=== PATIENT | male | born 2000 | race Two or more races ===

== ENCOUNTER 2024-04-12 19:46 | Emergency (ER) | payer MEDICAID, SELFPAY ==
[2024-04-12 19:47] VITALS: BMI 25.0
[2024-04-12 19:53] VITALS: BP 149/80; PULSE 56; RESP 18; TEMP 36.7; O2SAT 98; BMI 24.2
[2024-04-12 20:38] VITALS: BP 138/77; PULSE 61; RESP 18; TEMP 36.7; O2SAT 99
--- NOTE | 2024-04-12 20:59 | XR_ITS ---
Examination: Abdomen sonogram, Limited Date and time of exam: April 12, 2024 at 0908 hrs. Indications: Epigastric pain beginning 3 hours ago Technique: Real-time quezada scale transabdominal sonographic images of the upper abdomen obtained. Findings: Gallbladder sludge Negative for gallstones Gallbladder wall 0.3 cm no edema Common bile duct 0.2 cm Pancreatic head 2.5 cm Liver 13.5 cm smooth contour no focal liver lesions Normal hepatopedal portal venous flow Patent IVC Impression: Gallbladder sludge, negative for cholelithiasis, negative for cholecystitis
--- NOTE | 2024-04-12 21:00 | PD.EDRME ---
Rapid Medical Screening Exam RME Arrival date/time: 04/12/24 19:46 23-year-old male reports with complaints of epigastric abdominal pain that began this evening Chief Complaint: Abdominal Pain Time Seen by Provider: 04/12/24 20:08 Vital signs: Vital Signs Temperature 98.0 F 04/12/24 19:53 Pulse Rate 56 L 04/12/24 19:53 Respiratory Rate 18 04/12/24 19:53 Blood Pressure 149/80 H 04/12/24 19:53 Pulse Oximetry (%) 98 04/12/24 19:53 Oxygen Delivery Method Room Air 04/12/24 19:53
[2024-04-12 21:36] LABS: Collection Type, Urine Clean Catch; Squamous Epithelial Cell,Urine 0 /hpf (0-5)
[2024-04-12 21:42] LABS: Bilirubin,Urine Negative (Negative); Blood,Urine Negative (Negative); Clarity,Urine Clear (Clear/Hazy); Color,Urine Lt-Yellow (Lt Yel-Yel); Culture Indicated,Urine Not Indicated; Glucose, Urine Negative (Negative); Ketones,Urine Negative (Negative); Leukocyte Esterase,Urine Negative (Negative); Nitrite,Urine Negative (Negative); PH,Urine 6.5 (5.0-7.0); Protein,Urine Trace (Neg - Trace); RBC,Urine < 1 /hpf (0-3); Urobilinogen,Urine Negative mg/dL (0.0-1.0); WBC,Urine < 1 /hpf (0-5)
[2024-04-12 21:58] LABS: Basophils % (Auto) 1 % (0-2.5); Eosinophils # (Auto) 0.2 Thou/mm3 (0.0-0.5); Eosinophils % (Auto) 2 % (0-10); Hematocrit 44.2 % (41.0-53.0); Hemoglobin 15.3 g/dL (13.5-16.0); Immature Granulocytes % (Auto) 0 % (0-0); Immature Granulocytes Auto 0.01 Thou/mm3 (0.00-0.00); Lymphocytes # (Auto) 2.4 Thou/mm3 (1.0-4.8); Lymphocytes % (Auto) 34 % (10-50); Mean Corpuscular HGB Conc 34.6 g/dl (31.0-37.0); Mean Corpuscular Hemoglobin 30.6 pg (25.0-35.0); Mean Corpuscular Volume 88 fL (80-100); Monocytes # (Auto) 0.4 Thou/mm3 (0.0-0.8); Monocytes % (Auto) 6 % (0-12); Neutrophils % (Auto) 57 % (37-80); Nucleated Red Blood Cell % 0 /100 WBC (0); Platelet Count 224 Thou/mm3 (140-440); RDW Standard Deviation 40.3 fL (35.1-43.9); White Blood Count 7.1 Thou/mm3 (3.8-10.6)
[2024-04-12 22:18] VITALS: BP 145/80; PULSE 81; RESP 18; TEMP 36.7
--- NOTE | 2024-04-12 22:31 | EDNOTE_ITS ---
ED Abdominal Pain RME/HPI General Chief Complaint: Abdominal Pain Stated complaint: ABD PAIN X 3 HOURS Time seen by provider: 04/12/24 20:08 Arrival date/time: 04/12/24 19:46 This is a 23-year-old male with complaints of abdominal pain that started this afternoon. Patient states that he ate a torta and a soda and started to have pain. Patient denies nausea, vomiting, diarrhea, fever. Patient denies any urinary symptoms. RME / HPI RME / HPI narrative: 04/12/24 19:46 23-year-old male reports with complaints of epigastric abdominal pain that began this evening Related Data Previous Rx's ?Medication ?Instructions ?Recorded famotidine 40 mg tablet 40 mg PO QDAY #20 tabs 11/02 ibuprofen 800 mg tablet 800 mg PO Q6H PRN pain #10 t abs 04/12/24 Allergies Allergy/AdvReac Type Severity Reaction Status Date / Time No Known Allergies Allergy Verified 04/18/24 11:46 Review of Systems Review of Systems Systems Reviewed: All systems reviewed, normal except as documented Past Medical History Past Medical History NEUROLOGIC: Positive Seizures CARDIAC: Negative Congestive Heart Failure RESPIRATORY: Negative Chronic Obstructive Pulmonary Disease (COPD) GENITOURINARY: Negative Renal Disease ENDOCRINE: Negative Diabetes Mellitus Type 1 or Diabetes Mellitus Type 2 OTHER HISTORY: Positive Blood Transfusions; Negative Blood Transfusion Reaction or Anesthesia Reactions Social History SMOKING STATUS: Never smoker SUBSTANCE USE: does not use Travel History EBOLA RISK: No ED Exam General General appearance: Present alert and in no apparent distress Head Head exam: Present atraumatic Eye Eye exam: Present normal appearance, PERRL and EOMI ENT ENT exam: Present normal exam, normal oropharynx and mucous membranes moist Neck Neck exam: Present normal inspection, full ROM and trachea midline Chest Chest inspection: Present normal inspection and symmetric chest wall rise Respiratory Respiratory exam: Present normal lung sounds bilaterally Cardiovascular Cardiovascular exam: Present regular rate, normal rhythm and normal heart sounds Abdominal Exam Abdominal exam: Present soft Extremities Exam Extremities exam: Present normal inspection and full ROM Back Exam Back exam: Present normal inspection and full ROM Neurological Exam Neurological exam: Present alert, oriented X3 and CN II-XII intact Psychiatric Psychiatric exam: Present normal affect and normal mood Skin Skin exam: Present warm, dry, intact and normal color Course Quality Measures none Orders Category Date Time Status US abdomen limited Stat Exams 04/12/24 20:59 Completed CBC Stat Lab 04/12/24 21:43 Completed CMP [Comprehensive Metabolic Panel] Stat Lab 04/12/24 21:43 Completed Lipase Stat Lab 04/12/24 21:43 Completed UA, C/S IF [Urinalysis, C/S if Indicated] Stat Lab 04/12/24 21:22 Completed HYDROcodone*/APAP 5/325 [[place] 5/325] Med 04/12/24 22:35 Discontinued 1 tab PO X1 ONE Ketorolac Inj [Toradol Inj] Med 04/12/24 22:35 Discontinued 60 mg IM X1 ONE Metoclopramide Inj [Reglan Inj] Med 04/12/24 22:35 Discontinued 10 mg IM X1 ONE Vital Signs Vital signs: Vital Signs Temperature 98.0 F 04/12/24 19:53 Pulse Rate 56 L 04/12/24 19:53 Respiratory Rate 18 04/12/24 19:53 Blood Pressure 149/80 H 04/12/24 19:53 Pulse Oximetry (%) 98 04/12/24 19:53 Oxygen Delivery Method Room Air 04/12/24 19:53 Abdominal Pain MDM MDM Narrative MDM Narrative:: Labs look unremarkable. us of abdomen: Findings: Gallbladder sludge Negative for gallstones Gallbladder wall 0.3 cm no edema Common bile duct 0.2 cm Pancreatic head 2.5 cm Liver 13.5 cm smooth contour no focal liver lesions Normal hepatopedal portal venous flow Patent IVC Impression: Gallbladder sludge, negative for cholelithiasis, negative for cholecystitis Will give patient a dose of Toradol, Reglan and [place] for pain. Patient told to follow-up with primary provider in 1 to 2 days. Come back to emergency room if symptoms change or worsen. Patient data External records reviewed:: [facility] previous records Clinical information provided by:: patient Social determinants that could affect healthcare access:: none Patient has the following chronic illnesses:: none How is presenting disease/condition affected by chronic disease/condition?: no chronic disease Evaluation data The following diagnostics were reviewed and interpreted by me:: lab results and radiology exam(s) Lab and/or radiology exams considered but not ordered:: none Interpretation Summary: see note Medications / Prescriptions Medications or Prescriptions considered but not ordered:: none Medication administrations:: Medication Administration History Discontinued Medications Hydrocodone Bitart/Acetaminophen (Hydrocodone/Apap 5/325 Tablet) 1 tab PO X1 ONE Stop: 04/12/24 22:36 Last Admin: 04/12/24 23:05 Dose: 1 tab Documented By: RASHEED Ketorolac Tromethamine (Ketorolac Inj 60 Mg/2 Ml Vial) 60 mg IM X1 ONE Stop: 04/12/24 22:36 Last Admin: 04/12/24 22:55 Dose: 60 mg Documented By: RASHEED Metoclopramide HCl (Metoclopramide Inj 5 Mg/Ml Vial 2 Ml) 10 mg IM X1 ONE; Protocol Stop: 04/12/24 22:36 Last Admin: 04/12/24 22:57 Dose: 10 mg Documented By: RASHEED see mar Consultations Consultation(s) initiated? (list below): No Diagnosis Differential diagnosis abdominal pain: abdominal pain, acute appendicitis, calculus of kidney, pancreatitis and other (gallstone ) Most likely diagnosis given after review of the tests above:: see note Admission Indicated Admission indicated?: not indicated Admission Request Was there a request for admission?: No Disposition Plan Disposition Plan: Discharge Discharge Attestation Discharge Attestation: The patient and all family members were given an opportunity to ask questions and understood the discharge instructions. Discharge instructions specifically effects, indications for sooner follow up or return to the emergency department, and the expected course of current diagnosis. Patient condition: Stable Discharge Plan Plan Patient Disposition: HOME (Self Care) Patient condition on transfer: Stable Prescriptions/Referrals Prescriptions/Med Rec: New ibuprofen 800 mg tablet 800 mg PO Q6H PRN (Reason: pain) Qty: 10 0RF No Action famotidine 40 mg tablet 40 mg PO QDAY Qty: 20 0RF Referrals: Juan Ren PA-C [Primary Care Provider] - In 1 week Problem List Clinical Impression: Gallbladder sludge, Abdominal pain Patient/Caregiver Discharge Instructions Discharge Activity: activity as tolerated Education Materials: Abdominal Pain Additional Instructions: Follow-up with primary provider in 1 to 2 days. Come back to the emergency room if symptoms change or worsen. Print Language: Kittitian Stand Alone Forms: Betty Award Info., Patient Portal Info Letter JESSICA/LIBORIO Supervising Physician JESSICA/LIBORIO Supervising Physician: [email or web address]
[2024-04-12 22:32] LABS: Carbon Dioxide 28.9 mMol/L (20.0-31.0); Chloride 107 mMol/L (98-107); Potassium 4.5 mMol/L (3.4-5.1); Sodium 143 mMol/L (136-145)
[2024-04-12 22:33] LABS: Alanine Aminotransferase 10 U/L (10-49); Albumin, Serum 4.7 gm/dL (3.5-5.0); Albumin/Globulin Ratio 1.7 (1.2-2.2); Alkaline Phosphatase 99 U/L (46-116); Anion Gap 7 (7-16); Aspartate Amino Transferase 21 U/L (0-34); BUN/Creatinine Ratio 16 Ratio (12-20); Bilirubin,Total 0.5 mg/dL (0.3-1.2); Blood Urea Nitrogen 16 mg/dL (9-23); Calcium 9.8 mg/dL (8.3-10.6); Calcium (Corrected) 9.8 mg/dL (8.5-10.1); Estimated Creatinine Clearance 102.8 mL/min (>60); Globulin 2.8 gm/dL (2.3-3.5); Glucose 88 mg/dL (74-106); Lipase 41 U/L (12-53); Osmolality,Calculated 285 (275-295); Total Protein 7.5 gm/dL (5.7-8.2); eGFR > 60 See Note
[2024-04-12] MEDS: KETOROLAC INJ 60 MG/2 ML VIAL IM (22:55)
[2024-04-12] MEDS: METOCLOPRAMIDE INJ 5 MG/ML VIAL 2 ML 10 MG IM (22:57)
[2024-04-12] MEDS: HYDROcodone/APAP 5/325 TABLET 1 TAB PO (23:05)
== END 2024-04-12 23:15 | disposition home or self-care (01) ==
PROVIDERS: Physician Assistant; Emergency Provider Emergency Medicine; PCP Physician Assistant Medical
DX: K82.8 Other specified diseases of gallbladder (principal)
CPT/HCPCS: 36415; 76705; 80053; 81001; 83690; 85025; 96372; 99284; J1885; J2765; A9270